=== PATIENT | female | born 1940 | race Hispanic/Latino ===

== ENCOUNTER → 2024-07-09 13:09 | Outpatient (CLI) | payer MEDICARE, MEDICAID, SELFPAY ==
--- NOTE | 2024-07-09 13:40 | EKG_ITS ---
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
[2024-07-09 15:09] LABS: Add Manual Diff / Slide Review NO; Basophils Absolute Auto 0 /uL (0-100); Basophils Percent Auto 0.6 % (0-2); Eosinophils Absolute Auto 100 /uL (0-450); Eosinophils Percent Auto 1.9 % (2-4); Hematocrit 37.2 % (36-46); Hemoglobin 12.4 g/dL (12.0-16.0); Lymphocytes Absolute Auto 1500 /uL (1100-4500); Lymphocytes Percent Auto 22.5 % (25-40); Mean Corpuscular HGB Conc 33.4 % (30-36); Mean Corpuscular Hemoglobin 27.8 PG (26-34); Mean Corpuscular Volume 83.3 fL (80-100); Monocytes Absolute Auto 400 /uL (0-900); Monocytes Percent Auto 6.6 % (3-14); Neutrophils Absolute Auto 4500 /uL (1500-7000); Neutrophils Percent Auto 68.4 % (50-75); Platelet Count 324 X10^3/uL (150-400); Red Blood Cell Count 4.47 X10^6/uL (4.0-5.2); Red Cell Distribution Width 15.4 % (11.6-14.8); White Blood Cell Count 6.6 X10^3/uL (4.5-11.0)
[2024-07-09 15:16] LABS: Hemoglobin A1C% w Est Avg Glu 5.5 % (4.0-6.0)
[2024-07-09 17:00] LABS: Albumin 3.8 g/dL (3.5-5.0); BUN Creatinine Ratio 23.8 (6-22); Blood Urea Nitrogen 19 mg/dL (7-17); Calcium 9.1 mg/dL (8.4-10.2); Carbon Dioxide 26 mmol/L (22-32); Chloride 100 mmol/L (98-107); Estimated Glomerular Filt Rate > 60 mL/min (>60); Glucose 98 mg/dL (80-110); HEMOLYSIS < 15 (0-50); Potassium 3.8 mmol/L (3.4-5.1); Sodium 136 mmol/L (137-145)
[2024-07-09 17:08] LABS: Prealbumin 24.4 mg/dL (17.6-36.0)
== END ==
PROVIDERS: PCP Physician Assistant; Referring Provider Orthopaedic Surgery Adult Reconstructive Orthopaedic Surgery; Visit Provider Orthopaedic Surgery Adult Reconstructive Orthopaedic Surgery
DX: Z01.818 Encounter for other preprocedural examination (principal); R73.9 Hyperglycemia, unspecified; E55.9 Vitamin D deficiency, unspecified; R77.0 Abnormality of albumin; Z01.812 Encounter for preprocedural laboratory examination
CPT/HCPCS: 36415; 80048; 82040; 82306; 83036; 84134; 85025; 93005

== ENCOUNTER 2024-10-05 11:53 | Day surgery (SDC) | payer MEDICARE, MEDICAID, SELFPAY ==
[2024-09-26 08:42] VITALS: BMI 46.5
[2024-10-05] VITALS (11 sets, daily range): BP systolic 109–148; BP diastolic 59–74; PULSE 60–94; RESP 12–22; TEMP 36.1–36.8; O2SAT 90–97; BMI 46.5
--- NOTE | 2024-10-05 06:00 | DI.RAD.S_ITS ---
PROCEDURE: XR KNEE LT 1TO2V INDICATIONS: tka TECHNIQUE: 2 view(s) of the knee acquired. COMPARISON: None. FINDINGS: Bones: Patient is status post knee joint arthroplasty. Hardware components are in expected positions. Visualized bony structures are intact. Soft tissues: Overlying postoperative changes are noted. IMPRESSION: Expected post-operative appearance of a knee arthroplasty. Approved by: Donna Vicente M.D.,Ph.D. on 10/05/2024 at 17:19
[2024-10-05] MEDS: LACTATED RINGERS 1,000 ML 42 ML IV ×2 (12:42→17:35)
--- NOTE | 2024-10-05 13:37 | PM.PREOP ---
Pre-operative Note Interval Note History & Physical reviewed/Exam performed by Physician: Yes Changes to H&P: No
--- NOTE | 2024-10-05 13:59 | SUR.OPER ---
Supine on padded OR bed. Pillow under head, arms secured on padded armboards <90 degree abduction. Safety belt across torso. Non-operative leg secured with tape over blanket over lower leg. Operative leg secured in DeMayo/King/Nathe positioner. Foam padded brace at thigh of operative leg.
[2024-10-05] MEDS: CEFAZOLIN 2 GM/100 ML PREMIX 100 ML IV ×2 (14:18→22:15)
[2024-10-05] MEDS: TRANEXAMIC ACID 1,000 MG VIAL 2000 MG INJ ×2 (14:29→16:06)
[2024-10-05] MEDS: ROPIVACAINE/EPI/CLONIDINE/KET 50 ML SYRINGE INJ (14:56)
--- NOTE | 2024-10-05 16:56 | P.OP_ITS ---
Operative Date/Time/Diagnoses Date of procedure: 10/05/24 Pre-op diagnosis: Left knee osteoarthritis Post-op diagnosis: same Procedure & Clinicians Procedure: Left total knee arthroplasty Same procedure as scheduled: Yes Surgeon: Newton Hunt Career Based Intervention Coordinator: Penelope Villasenor Anesthesia Type: General, Peripheral nerve block and Local Operative Notes Estimated Blood Loss (mL): 150 Procedure in detail: Left Gap-Balanced Keven Persona Medial-Congruent Primary Total Knee Arthroplasty Implants: * Size 7 narrow Cruciate Retaining Femoral Component * Size E Tibial Component with 14 x 30 stem extension * Size 14 [Medial Congruent] Polyethylene Insert * [Unresurfaced] Patella Procedure Summary: This 84-year-old female patient had predominantly medial wear but valgus alignment on her long leg standing radiograph. Given this discrepancy between her deformity and her wear pattern she unsurprising only balanced in extension without the need for any soft tissue releases following mechanical axis cuts. Her bone quality was very poor, as anticipated given her age. She has a high BMI, but only weighs 200 lb as she is rather short at 4 ft 7. She had a very truncal obesity pattern with nearly all of her fat distribution in her abdomen and a relatively normal sized leg. I did utilize an incisional wound VAC given her age, planned postoperative anticoagulation with Eliquis, and BMI. I used a +1 resection on the distal femur and a +4 resection off of the medial proximal tibia but noted that her extension gap open significantly following initial resections and she open to 12 mm with 40 lb of pressure. I therefore anticipated that a larger polyethylene insert would be necessary and ended up using a 14 mm. Procedure in Detail: This patient was seen preoperatively and evaluated for knee pain which was refractory to numerous nonoperative treatment modalities. Their pain correlated with radiographic changes demonstrating significant degeneration in the knee joint. The risks and benefits of continued nonoperative management versus operative management were discussed at length and all of the patient?s questions were answered. Additional educational materials providing further details beyond our discussion in clinic were provided via a publicly available patient education video which included the incidence of medical complications associated with total knee arthroplasty, reasons for revision following total knee arthroplasty, and patient satisfaction rates following total knee arthroplasty. That video can be accessed at [email or web address] . With this understanding of the risks inherent to the procedure, the patient elected to move forward with operative management. Following preoperative optimization, the patient was scheduled for surgery. The patient was met in the preoperative holding area the day of the procedure and all questions were answered. The patie nt?s nares were swabbed with betadine in order to decolonize them from MRSA. Informed consent was signed and the left limb was marked with indelible ink.? The patient was brought back to the operating room where anesthesia was induced. The patient was transferred to the operating table and all bony prominences were padded. The operative site was prepped and draped in the usual sterile fashion. A second prep stick was utilized following drape placement. The incision was marked corresponding to the medial aspect of the tibial tubercle and the patella. Ioban was wrapped circumferentially around the knee. Prior to incision, tranexamic acid and cefazolin were administered. Templating images were displayed. A timeout procedure was performed verifying the patient?s identity, medical comorbidities, allergies, relevant medications, anesthesia type and the surgical plan. All present were in agreement. The assistance of a physician assistant production manager was required for positioning, room setup, soft tissue retraction and wound closure. Without this assistance, the procedure would have been significantly more challenging and time consuming.?? The tourniquet was inflated prior to incision. I made an anterior incision over the knee, dissected through the subcutaneous tissues and identified the lateral border of the VMO. Medial and lateral soft tissue flaps were developed. A medial parapatellar arthrotomy was performed ensuring that adequate capsular tissue would remain for closure at the conclusion of the procedure. The hip was brought into extension and the medial soft tissues were released off the joint line of the tibia. Tissue overlying the distal anterior femur was released to allow for later assessment for anterior notching but left in place. A portion of the retropatellar fat pad was excised while protecting the patellar tendon. The patella was everted. The patella was [not resurfaced]. Osteophytes were excised and a lateral facetectomy was performed. The patella was released from its everted position.?? I flexed the knee to 90 degrees and placed retractors to allow access to the notch. An opening reamer was used to gain access to the femoral canal and an intramedullary ben was introduced into the canal. Diaphyseal fit was obtained in order to allow a distal femoral resection at 5 degrees relative to the anatomic axis, thereby aiming to achieve mechanical alignment of the eventual implant. A +1 resection was planned and assessed using an jennie wing. I then made the cut using a sagittal saw. This provided additional access to the femoral notch. The ACL and PCL were excised. Retractors were placed on the lateral and medial tibia. I hyperflexed the knee while externally rotating it to sublux the tibia anteriorly. I placed a PCL retractor posteriorly and used this to provide additional anterior subluxation. The remainder of the PCL root was released. An intramedullary reamer was used in the ACL footprint to provide access to the tibial canal. An extramedullary guide was positioned to allow a resection perpendicular to the anatomic and mechanical axes of the tibia, thereby aiming to achieve mechanical alignment of the eventual implant. A [+4 resection off the medial tibia] was planned and the tibial cutting jig was pinned in place. I evaluated the cut depth, varus-valgus alignment and slope of the planned tibial resection and deemed them satisfactory. I cut the tibia with a sagittal saw while using retractors to protect the MCL, patellar tendon, and posterolateral structures.? The knee was repositioned in extension and the Fuzion soft tissue balancing gauge was introduced. This demonstrated that [there was equal tension in the medial and lateral compartments of the knee with the knee in full extension and no additional soft tissue releases were necessary.] When 40 pounds of force was applied to the Fuzion device, the extension gap opened to 12 mm. I moved the knee into 90 degrees of flexion, and the Fuzion device was recalibrated by removing a 9 mm lloyd to allow assessment of the flexion gap. The Fuzion was placed perpendicular to the resected surface of the tibia and the resected surface of the distal femur. Forty pounds of traction was applied to match the tension of the extension gap. This externally rotated the femur to 3 degrees. Pins were placed in the 12 mm holes. The measured resection guide was placed over the pins to allow sizing. Appropriate sizing was determined and a 4-in-1 block was placed. This was double checked using the Fuzion device to ensure that it would open to an equal distance as the extension gap when the same amount of force was applied. The Fuzion block was also used to assess flexion gap symmetry. An jennie wing was used to ensure there would be no anterior notching. Retractors were placed to protect the soft tissues during resection. Captured cuts were performed with a sagittal saw for the anterior and posterior femur as well as the corresponding chamfers.? Trial components were placed and the construct was assessed. Range of motion was assessed by ensuring the knee could achieve full extension and assessing maximum passive knee flexion by elevating the femur and allowing the heel to passively fall towards the buttock. Gap symmetry was assessed by stressing the medial and lateral compartments in both extension and flexion. Laxity was assessed in both extension and flexion and the polyethylene trial was adjusted with shims as necessary. Patellar tracking was assessed with knee flexion. Once satisfied with the construct, I moved forward with implant insertion. Lug holes were drilled in the femur and the tibia was prepped ensuring appropriate sizing and rotation relative to the tibial tubercle.?? The bony ends were irrigated and cement was prepared. Portions of the anterior chamfer cut were utilized as cement restrictors in the femur and tibia where intramedullar rods had been utilized. Cement was placed on the entirety of the undersurface of both the tibial and femoral components. Cement was placed onto the dry tibia and pressurized into the cancellous bone. I impacted the tibial component into place. Cement was removed. The tibia was reduced underneath the femur and placed cement onto the dry surface of the resected femur. I placed the femoral component as well as the intended polyethylene trial. Cement was removed from around the femur. I brought the knee into extension and manually pressurized the construct by pushing on the heel while the cement dried. The knee was bathed in a dilute mixture of betadine and peroxide. A mixture of Ropivacaine, Epinephrine, Clonidine and Toradol was infiltrated throughout the soft tissues into structures including the VMO, patellar tendon, quadriceps tendon, MCL and femoral periosteum. A low adductor canal block was also pe rformed using this mixture unless one had been placed preoperatively by anesthesia. The knee was copiously irrigated with pulse lavage. Once cement had been allowed to dry the knee was again trialed. Range of motion was assessed by ensuring the knee could achieve full extension and assessing maximum passive knee flexion by elevating the femur and allowing the heel to passively fall towards the buttock. Gap symmetry was assessed by stressing the medial and lateral compartments in both extension and flexion. Laxity was assessed in both extension and flexion and the polyethylene trial was adjusted with shims as necessary. Patellar tracking was assessed with knee flexion. The tourniquet was let down and the polyethylene trial was removed. I inspected the knee inspected for excess cement and any residual bleeding. Once hemostasis was achieved I inserted the final polyethylene and ensured appropriate engagement of the dovetail locking mechanism.?? The arthrotomy was closed with absorbable interrupted suture ensuring that this extended to the top of the arthrotomy. This was backed up with running barbed suture throughout the arthrotomy. The skin was closed with 2-0 and 3-0 sutures. Surgical glue was applied and a soft dressing was placed.?The sponge, instrument and needle counts were reported as being correct at the end of the case.??No obvious complications occurred. The patient was transferred from the operating table back to a stretcher. The patient emerged from anesthesia without difficulty and was taken to the PACU in a stable condition.? Plan for aftercare: * Weightbearing as tolerated * Mobilization as soon as the patient has recovered from anesthesia. If physical therapists are unavailable at the time the patient is ready to ambulate, then nursing staff should help patient ambulate * Eliquis 2.5 mg twice per day for DVT prophylaxis * Multimodal pain regimen with no IV opioids ordered * Obstructive sleep apnea protocol including respiratory therapy has been ordered based on anesthesia's assessment intraoperatively * Cefadroxil 500 mg twice per day to be taken for 10 days postoperatively for periprosthetic joint infection prophylaxis * Anticipate discharge home tomorrow * Follow up at [facility] in 2 weeks * Detailed postoperative instructions available at [email or web address]
[2024-10-05] MEDS: ALBUTEROL/IPRATROPIUM 3 ML AMPUL INH (17:16)
[2024-10-05] MEDS: OXYCODONE IR 5 MG TABLET PO ×2 (17:19→21:10)
[2024-10-05] MEDS: MORPHINE 10 MG/ML INJ IV ×2 (17:27→17:33)
--- NOTE | 2024-10-05 18:28 | PC.NURSE ---
Patient arrived from PACU at 1850 this evening. She is initially on oxymask but had just received a neb in PACU and was placed on 2 L NC. She reports pain in L knee 6-04/25 but improves after settling in to room. ASHKAN wrap to L Knee C/D/I. Admission, assessment completed, IVF running, call light in reach, incontinent brief placed, bed alarm, q 2 turning, SCD's on, frequent rounding.
[2024-10-05] MEDS: LACTATED RINGERS 1,000 ML 100 ML IV (19:01)
[2024-10-05] MEDS: TRAMADOL 50 MG TABLET PO (19:06)
[2024-10-05] MEDS: DOCUSATE 100 MG CAPSULE PO (20:34)
[2024-10-05] MEDS: MIRTAZAPINE 15 MG TABLET 30 MG PO (20:34)
[2024-10-05] MEDS: cephALEXin 250 MG CAPSULE PO (20:35)
[2024-10-05] MEDS: ASPIRIN EC 81 MG TABLET PO (20:36)
[2024-10-05] MEDS: ALBUTEROL 2.5 MG/3 ML NEB (ADULT) INH (20:36)
[2024-10-05] MEDS: BUDESONIDE 0.5 MG/2 ML NEB INH (20:37)
[2024-10-06 00:48] VITALS: BP 130/60; PULSE 70; RESP 15; TEMP 36.1; O2SAT 93
[2024-10-06] MEDS: OXYCODONE IR 5 MG TABLET PO ×3 (04:08→12:50)
[2024-10-06 04:50] VITALS: BP 136/75; PULSE 67; RESP 16; TEMP 36.3; O2SAT 94
[2024-10-06 05:19] LABS: Hematocrit 35.6 % (36-46); Hemoglobin 11.8 g/dL (12.0-16.0)
[2024-10-06] MEDS: CEFAZOLIN 2 GM/100 ML PREMIX 100 ML IV (06:21)
[2024-10-06] MEDS: LEVOTHYROXINE 75 MCG TABLET PO (06:21)
[2024-10-06] MEDS: ACETAMINOPHEN 325 MG TABLET 650 MG PO (07:50)
[2024-10-06 08:00] VITALS: BP 128/54; PULSE 71; RESP 20; TEMP 36.5; O2SAT 93
[2024-10-06] MEDS: ALBUTEROL 2.5 MG/3 ML NEB (ADULT) INH ×2 (08:30→11:19)
[2024-10-06] MEDS: BUDESONIDE 0.5 MG/2 ML NEB INH (08:30)
[2024-10-06 08:31] VITALS: PULSE 71; RESP 16; O2SAT 95
[2024-10-06] MEDS: cephALEXin 250 MG CAPSULE PO ×2 (08:43→12:50)
[2024-10-06] MEDS: DULOXETINE 30 MG CAPSULE 60 MG PO (08:43)
[2024-10-06] MEDS: ASPIRIN EC 81 MG TABLET PO (08:44)
[2024-10-06] MEDS: PANTOPRAZOLE DR 20 MG TABLET PO (08:44)
[2024-10-06] MEDS: LORATADINE 10 MG TABLET PO (08:45)
[2024-10-06] MEDS: MELOXICAM 7.5 MG TABLET PO (08:46)
[2024-10-06] MEDS: polyethylene glycoL 3350 17 GM POWD.PACK PO (08:47)
[2024-10-06] MEDS: TRAMADOL 50 MG TABLET PO (10:03)
[2024-10-06 11:19] VITALS: PULSE 70; RESP 16; O2SAT 95
--- NOTE | 2024-10-06 11:49 | P.DS_ITS ---
History of Present Illness History of Present Illness Chief complaint: Left TKA *OPB* Narrative: Alis is a pleasant 84 year old female who is POD#1 s/p L TKA by Dr. Hunt. This morning patient reports she is doing well, states her pain is moderate but well controlled at the moment w/ Oxycodone. She reports she has been out of bed once so far and tolerated fairly well w/o too much increase in pain. She would like to possibly d/c to home today. Her daughter will be staying with her for her initial post-op recovery period. She has post-op PT appts scheduled w/ [facility]. She has Meloxicam and Oxycodone Rx at home already for post-op pain control. She does have a history of PE in 2009 and therefore will receive Eliquis 2.5mg BID for post-op DVT prophylaxis for 2 weeks. She has her walker home postop use. She has not been out of bed to urinate yet but reports no issue making urine, she has PureWick in place. Denies fever, chills, chest pain, SOB, nausea, vomiting. Denies any feelings of dizziness or lightheadedness. Operative Date/Time/Diagnoses Date of procedure: 10/05/24 Pre-op diagnosis: Left knee osteoarthritis Post-op diagnosis: same Procedure & Clinicians Procedure: Left total knee arthroplasty Same procedure as scheduled: Yes Surgeon: Newton Hunt Remote Operations Producer: Penelope Villasenor Anesthesia Type: General, Peripheral nerve block and Local Operative Notes Estimated Blood Loss (mL): 150 Procedure in detail: Left Gap-Balanced Keven Persona Medial-Congruent Primary Total Knee Arthroplasty Implants: * Size 7 narrow Cruciate Retaining Femoral Component * Size E Tibial Component with 14 x 30 stem extension * Size 14 [Medial Congruent] Polyethylene Insert * [Unresurfaced] Patella Discharge Providers Provider Discharge Date: 10/06/24 Primary care physician: Cheryl Howell PA-C Consults: 09/26/24 10:38 Consult to Anesthesiology Routine Comment: Consulting Provider: Anesthesiologist Reason for consultation: Surgeon requested re: Cardiac history 10/05/24 06:00 Consult to Anesthesiology Routine Comment: Consulting Provider: Anesthesiologist Reason for consultation: Regional block for post operative pain control 10/05/24 17:39 Consult to Discharge Planning Routine Comment: Consult to Discharge Planning Routine Comment: Consult to Occupational Therapy Evaluate & Treat Comment: Physician Instructions: Evaluate and treat Consult to Occupational Therapy Evaluate & Treat Comment: Physician Instructions: Evaluate and treat Consult to Physical Therapy Evaluate & Treat Comment: Physician Instructions: postop TKA protocol Consult to Physical Therapy Evaluate & Treat Comment: Physician Instructions: postop TKA protocol Discharge provider: Penelope Villasenor PA-C Summary Hospital Course Discharge Diagnosis: Stable status post left total knee arthroplasty Hospital Course: Uncomplicated hospital course. Exam Vital Signs (past 8 hours): - 10/06/24 04:50 10/06/24 08:00 10/06/24 08:31 Temperature 97.3 F L 97.7 F Pulse Rate 67 71 71 Respiratory Rate 16 20 16 Blood Pressure 136/75 128/54 L Pulse Oximetry 94 93 95 Oxygen Delivery Method Room Air Oxygen Flow Rate 0 10/06/24 11:19 Temperature Pulse Rate 70 Respiratory Rate 16 Blood Pressure Pulse Oximetry 95 Oxygen Delivery Method Room Air Oxygen Flow Rate Fraction of Inspired Oxygen 28 SaO2/FiO2 Ratio 346 Oxygen Delivery Method Room Air Oxygen Flow Rate 0 Narrative Exam Narrative: Patient lying comfortably in bed during our interview today. No acute distress. AOx3. Grossly normal alignment of the left lower extremity with moderate swelling throughout the extremity. No ecchymosis. 5/5 strength with DF, PF, EHL bilaterally. Gross sensation intact throughout bilateral lower extremities. Calves soft and non-tender bilaterally. SCDs are on and functioning. Brisk capillary refill, pulses intact. Post-surgical malena and driss dressing clean, dry and intact over the left knee without drainage. Objective Labs 10/06/24 04:40 Labs: Laboratory Results - last 24 hr 10/06/24 04:40 Hgb 11.8 L Hct 35.6 L PFSH Medical History (Updated 09/26/24 @ 10:06 by Tootie Jay RN) Amputation of toe of right foot Hearing loss Osteoarthritis Hypothyroid GERD (gastroesophageal reflux disease) HTN (hypertension) AKHIL (obstructive sleep apnea) Ear pain Fibromyalgia Pulmonary embolism (2009) Surgical History (Updated 09/26/24 @ 10:04 by Tootie Jay RN) History of colonoscopy Hx of toe surgery History of lumbar spinal fusion History of esophagogastroduodenoscopy (EGD) Hx of hernia repair History of carpal tunnel release of both wrists History of hysterectomy Hx of appendectomy Hx of cholecystectomy Hx of bilateral cataract extraction Social History household members: none Smoking Status: Former smoker alcohol intake: former Discharge Assessment & Plan Assessment and Plan Assessment: Stable s/p L TKA Plan of Treatment: 1) Plan to discharge to home today with daughter pending PT evaluation, safe ambulation. 2) Continue multimodal pain management with ice to the knee for additional pain control. 3) Elqiuis 2.5mg BID for DVT prophylaxis X2 weeks. 4) Start outpatient physical therapy to work on range of motion and mobility. 5) Keep dressing intact, clean, dry until 2 week postop appointment. No soaking the incision site in pools or tubs. No topical ointments or creams to the incision site. 6) Follow up at [facility] orth[facility]ics in 2 weeks for a postop appointment and wound check. All patient's questions were answered, they demonstrates understanding and are in agreement with the plan. Call our office if any questions or concerns arise. Discharge Plan Discharge Plan Patient Disposition: Home Discharge orders & Medications Discharge Orders: Discharge (Order); Ordered 10/06/24 Ordered By: Penelope Villasenor Prescriptions: New cefadroxil 500 mg capsule 500 mg PO BID 10 Days Qty: 20 0RF meloxicam 7.5 mg Tablet 7.5 mg PO 1XD Qty: 30 0RF docusate sodium 100 mg Capsule 100 mg PO BID Qty: 30 0RF Eliquis 2.5 mg tablet 2.5 mg PO BID 14 Days Qty: 28 0RF Continued losartan 50 mg Tablet 50 mg PO DAILY fluticasone propion-salmeterol 250-50 mcg/dose Blister With Device 1 inh INHALATION BID amlodipine 5 mg Tablet 5 mg PO DAILY pantoprazole 20 mg Tablet,Delayed Release (Dr/Ec) 20 mg PO DAILY levothyroxine 75 mcg Tablet 75 mcg PO DAILY mirtazapine 30 mg Tablet 30 mg PO BEDTIME azelastine 137 mcg (0.1 %) [place],Non-Aerosol 2 spray INTRANASAL BID Rx Instructions: administer into each nostril albuterol sulfate 90 mcg/actuation Hfa Aerosol Inhaler 2 puff INHALATION Q4-6H PRN (Reason: Shortness Of Breath Or Wheezing) duloxetine 60 mg Capsule,Delayed Release(Dr/Ec) 60 mg PO DAILY levocetirizine 5 mg Tablet 5 mg PO DAILY Changed oxycodone 5 mg tablet 5 mg PO Q4-6H PRN (Reason: Pain (Scale Score 7-10)) Qty: 30 0RF Follow up/Referrals: Cheryl Howell PA-C [Primary Care Provider] - Newton Hunt MD [Physician] - (Follow up at [facility] as scheduled in 2 weeks. ) Diet/Activity/Treatments Diet: Diet as Tolerated Activity: Weightbearing as tolerated, work with outpatient physical therapy to improve range of motion and mobility. Cold/Heat Therapy: Ice to the knee for additional pain control. Skin/Wound/Dressing Care Report to your healthcare provider any signs of infection, such as:: chills, fever, night sweats, unusual drainage and unusual redness Dressing: Keep dressing intact, clean and dry until 2 week post-op appointment. No soaking the incision site in pools or tubs. No topical ointments or creams to the incision site. Visit Report/Discharge Packet Instructions: DI for Knee Replacement, DI for Prescription Opioid Use Stand Alone Forms: Patient Portal/API Discharge Data Primary Care Provider: Cheryl Howell Attending Provider: Newton Hunt Quality VTE Deep Vein Thrombosis/Pulmonary Embolism Present on Admission: No
--- NOTE | 2024-10-06 11:50 | PT.IIE ---
Current Diagnoses Unilateral primary osteoarthritis, left knee (10/05/24) Surgery Performed Operation Date: 10/05/24 13:45 Actual Procedures p Total Knee Arthroplasty(Left) - Newton Hunt MD Surgical History (Last Updated 09/26/24 @ 10:04 by Tootie Jay, RN) History of carpal tunnel release of both wrists History of colonoscopy History of esophagogastroduodenoscopy (EGD) History of hysterectomy History of lumbar spinal fusion Hx of appendectomy Hx of bilateral cataract extraction Hx of cholecystectomy Hx of hernia repair Hx of toe surgery Medical History (Last Updated 09/26/24 @ 10:06 by Tootie Jay RN) Amputation of toe of right foot Ear pain Fibromyalgia GERD (gastroesophageal reflux disease) Hearing loss HTN (hypertension) Hypothyroid AKHIL (obstructive sleep apnea) Osteoarthritis Pulmonary embolism (2009) Physical Therapy Inpatient Evaluation/Re-Eval M1 PT/OT-IP Prior Functional Status Start: 10/06/24 13:19 Freq: NEEDED Status: Active Protocol: Document 10/06/24 11:50 AB (Rec: 10/06/24 13:38 AB [id number]) Medical Review Prior Functional Status Medical History Reviewed Yes Communication able to make needs known Mobility and Gait jpt stated that she was modified independent with all mobilities and ambulation using a 4WW/SPC; tends to furniture cruise at home and uses her electric scooter for outdoor long distance mobility Social History Household Members none Living Arrangements Apartment/Condo Number of Floors (Floors) One Floor Number of Stairs To Enter/Railing? pt stated that she lives in a senior apartment with access to an elevator to get into her floor ramp from the parking to get into the apartment complex Home Environment High Toilet,Walk in Shower, Ramp,Elevator Home Equipment Front Wheel Walker,Four Wheel Walker,Straight Cane,Shower Seat with Backrest,Hand Held Shower,Grab Bars Near Toilet, Grab Bars In Shower Additional Social History Comment pt stated that her daughter will stay with her to assist her during the day as long as needed and her grand daughter will stay with her at night; stated that she has her friend /neighbor Sharif who also will assist her and drive her to go to her outpt PT appointments M2 PT-IP Current Condition Start: 10/06/24 13:19 Freq: NEEDED Status: Active Protocol: Document 10/06/24 11:50 AB (Rec: 10/06/24 13:38 AB [id number]) Physical Therapy Current Condition Current Condition Evaluation Date 10/06/24 Treatment Diagnosis s/p L TKA; difficulty in walking Onset Date 10/05/24 M3 PT-IP Subjective Start: 10/06/24 13:19 Freq: NEEDED Status: Active Protocol: Document 10/06/24 11:50 AB (Rec: 10/06/24 13:38 AB [id number]) Subjective Physical Therapy Visit Type Type Initial Evaluation Visit Start Time 11:50 Visit Stop Time 12:40 Number of GENERAL CAR SUPERVISOR YARD Visits 0 Physical Therapy Visit Comments Patient Comments agreeable to do PT Therapy Pain Assessment Pain When Pain Assessed At Rest Pain Present Pain Present Pain Reported Location Left Knee Intensity 5 Scale Used increases to 9/10 with movement Pain Behaviors Guarding,Wincing Pain Management Techniques Distraction,Elevation, Modification of Treatment,Re- positioning,Timing of Activity with Medications M4 PT-IP Mobility and Gait Start: 10/06/24 13:19 Freq: NEEDED Status: Active Protocol: Document 10/06/24 11:50 AB (Rec: 10/06/24 13:38 AB [id number]) PT-Bed Mobility Assessment Supine to Sit Supine to Sit Standby Assistance PT-Transfer Assessment Sit to and From Stand Sit to and from Stand Contact Guard Assistance, Minimal Assistance,1 Person Assistance,Use of Upper Extremities Equipment Transfer Assistive Device Gait Belt,Front Wheeled Walker Orthotic/Prosthetic Devices or Brace: No Transfers Transfer Destination Chair Transfer Technique ambulated Transfer Ability Level of Assist Minimal Assistance,1 Person Assistance,Use of Upper Extremities Comments Mobility Comments pt supine in bed. obtained PLOF and home set up. daughter arrived. completed heel slides on LLE prior to getting up. post-op folder provided and reviewed contents. BP: 129/54. pt completed supine to sit SBA. able to sit on EOB SBA. completed sit to stand min A and max cues. able to ambulate using FWW min A initially and CGA towards end of ambulation. pt completed ~ 30 ft. pt sat on the chair. caregiver training conducted. educated daughter on how to use safety belt and how to assist pt. daughter was able to put safety belt on pt. assisted pt with sit to stand from chair CGA and ambulated in room ~ 20 ft using fWW CGA to min A. pt sat back on chair . positioned pt on the chair. set up for lunch. call light and table placed next to pt. adjusted pt's FWW. pt and daughter without further concerns. Gait Assessment Gait Gait Assistance Required: Contact Guard Assist,Minimum Assistance Distance (Feet) 30 Able to Maintain Weight Bearing Status Yes During Gait Assistive Devices Assistive Device Gait Belt,Front Wheeled Walker Orthotic/Prosthetic Devices or Brace: No Gait Deviations General Gait Pattern Antalgic,Decreased Stride Length,Decreased Feet Clearance Factors Limiting Gait Function Factors Limiting Gait Function Decreased Activity Tolerance, Decreased Strength,Difficulty Following Directions,Limited Range of Motion,Pain,Poor Balance,Poor Safety Awareness PT-Balance Assessment Sitting Balance and Reactions Static Sitting Balance Ability Normal Dynamic Sitting Balance Ability Good Standing Balance and Reactions Static Standing Balance Ability Fair Dynamic Standing Balance Ability Fair Device Used FWW M5 PT-IP Objective Assessments Start: 10/06/24 13:19 Freq: NEEDED Status: Active Protocol: Document 10/06/24 11:50 AB (Rec: 10/06/24 13:38 AB [id number]) Orientation Orientation/Cognition Level of Alertness Alert Orientation Name,Place,Situation Language Function Ability Hard of Hearing Safety Awareness Understands Safety Issues Memory Description No Deficits Noted Gross Range of Motion Lower Extremity ROM Impairments L knee flexion: ~ 50 deg L knee extension: ~ 25 deg less to 0 Strength Lower Extremity Strength Assessment Bilaterally Impaired Hip 4-/5 Knee 3+/5 Sensation Assessment Sensation Gross Sensation WNL Muscle Tone Muscle Tone WNL Yes M6 PT-IP Treatment Start: 10/06/24 13:19 Freq: NEEDED Status: Active Protocol: Document 10/06/24 11:50 AB (Rec: 10/06/24 13:38 AB [id number]) Physical Therapy Treatment Exercises Exercises Heel Slides Education Education Provided Precautions,Weight Bearing Status,Post-Op Packet,Safety M7 PT-IP Assessment and Plan Start: 10/06/24 13:19 Freq: NEEDED Status: Active Protocol: Document 10/06/24 11:50 AB (Rec: 10/06/24 13:38 AB [id number]) PT Summary Assessment and Plan Potential Rehabilitation Potential Fair Status of Condition at Evaluation Stable Summary Impairments Pain,ROM,Strength,Balance, Coordination,Sensation,Tone, Cognition,Bed Mobility, Transfers,Gait,Activity Tolerance Assessment Summary pt is an 84 y/o F s/p L TKA POD 1. pt is WBAT on LLE. pt requiring CGA to min A with mobility using FWW. pt plans to go home and her daughter will be assisting her. caregiver training conducted and daughter was able to assist pt with mobility. pt may go home when medically stable. Goals Bed Mobility Goal Independent Transfer Goal Independent,Front Wheeled Walker Gait Goal Independent,Front Wheel Walker Gait Distance 200 Days to Meet Goals 5 Frequency of Treatment Frequency Of Treatment Twice a Day Treatment Plan Physical Therapy Treatment Plan Bed Mobility Training,Transfer Training,Gait Training, Therapeutic Exercise,Balance Retraining,Post Op Education, Discharge Planning,Hot or Cold Pack,Neuromuscular Re-ed, Coordination Retraining,Manual Therapy Weight Bearing Status Weight Bearing Status Weight Bear as Tolerated Allowed Weight Bearing Amount (enter % LLE WBAT or #) (%) Recommendations To Nursing Amount of Assist Needed 1 Person Assist Discharge Recommendations PT Discharge Recommendations Home with Assistance, Outpatient PT Transportation Needs at Discharge Private Vehicle
--- NOTE | 2024-10-06 13:14 | CM.DANOTE ---
Initial DCP Assessment Note Pt is a 84 yo female, resident of [place], s/p left TKA PCP: Cheryl Howell Payer: [facility] Reviewed chart, pt discussed in multidisciplinary rounds this morning. Therapy has cleared pt for return home w/family to assist and pt has planned for home, DC order from Ortho has already been initiated this morning. No barriers identified at this time to patient's safe discharge home w/family to assist; close outpatient f/u recommended. CM team will plan to follow clinical course closely in case any DC needs or concerns arise. NATTY Greene Discharge Planning/Care Management CM Discharge Assessment Start: 10/06/24 13:12 Freq: Status: Active Protocol: Document 10/06/24 13:13 RADHA (Rec: 10/06/24 13:14 RADHA [id number]) Discharge Planning Assessment Assigned Hurricane Tracker NATTY Sloan DPOA/Assigned Designee Name Jess Reis, daughter Contact Information P [phone] Advance Directives? Yes Advance Directives on File No History Provided By Patient,Medical Record Prior Living Arrangements Apartment/Condo Household Members none Type of transporation used prior to Drives own vehicle admit Independent with ADL's Yes Is patient alert and oriented? Yes Patient/Family Preference OP PT Therapy Barriers to Discharge No Discharge Plan Home Transportation Arrangement Daughter Referrals Initiated None needed
== END 2024-10-06 13:49 | disposition home or self-care (01) ==
LOC: OR 11:53 → AC 11:54
PROVIDERS: PCP Physician Assistant; Referring Provider Physician Assistant; Visit Provider Orthopaedic Surgery Adult Reconstructive Orthopaedic Surgery
PROC: 0SRD0JZ Replacement of Left Knee Joint with Synthetic Substitute, Open Approach (ICD-10-PCS; CPT 27447; principal; 2024-10-05 13:45)
DX: M17.12 Unilateral primary osteoarthritis, left knee (principal); E66.9 Obesity, unspecified; Z68.39 Body mass index [BMI] 39.0-39.9, adult; M25.762 Osteophyte, left knee
CPT/HCPCS: 27447; 36415; 73560; 85014; 85018; 94640; 97161; 97530; C1776; C1713; J0330; J0690; J1100; J2270; J2405; J2704; J3010; J7613

== ENCOUNTER → 2025-03-01 13:54 | Outpatient (CLI) | payer MEDICARE, MEDICAID, SELFPAY ==
[2024-10-05 18:06] VITALS: BMI 46.5
--- NOTE | 2025-03-01 13:55 | DI.RAD.S_ITS ---
PROCEDURE: XR KNEE 2V WB RIGHT INDICATIONS: Right knee pain TECHNIQUE: 3 views of the knee(s) COMPARISON: [facility] [place], [place], XR KNEE 4+ VIEWS LEFT, 11/27/2024, 15:01. FINDINGS: Bones: Left total knee arthroplasty with unremarkable appearance. There is stable appearance of advanced degenerative disease in the right medial compartment, with chondrocalcinosis laterally. There is probably a small joint effusion. Soft tissues: No knee joint effusions. No suspicious soft tissue calcification. IMPRESSION: Stable appearance of significant degenerative disease in the right medial compartment. Unremarkable left total knee arthroplasty. Dictated by: Kranthi King M.D. on 03/01/2025 at 21:45 Approved by: Kranthi King M.D. on 03/01/2025 at 21:47
[2025-03-01 16:25] LABS: Add Manual Diff / Slide Review NO; Basophils Absolute Auto 100 /uL (0-100); Basophils Percent Auto 0.9 % (0-2); Eosinophils Absolute Auto 200 /uL (0-450); Eosinophils Percent Auto 2.3 % (2-4); Hematocrit 37.6 % (36-46); Hemoglobin 12.5 g/dL (12.0-16.0); Lymphocytes Absolute Auto 2200 /uL (1100-4500); Lymphocytes Percent Auto 27.7 % (25-40); Mean Corpuscular HGB Conc 33.4 % (30-36); Mean Corpuscular Hemoglobin 26.8 PG (26-34); Mean Corpuscular Volume 80.4 fL (80-100); Monocytes Absolute Auto 600 /uL (0-900); Neutrophils Absolute Auto 4800 /uL (1500-7000); Neutrophils Percent Auto 61.1 % (50-75); Platelet Count 381 X10^3/uL (150-400); Red Blood Cell Count 4.68 X10^6/uL (4.0-5.2); White Blood Cell Count 7.8 X10^3/uL (4.5-11.0)
[2025-03-01 16:36] LABS: Hemoglobin A1C% w Est Avg Glu 5.6 % (4.0-6.0)
[2025-03-01 16:47] LABS: Albumin 4.1 g/dL (3.5-5.0); BUN Creatinine Ratio 15.6 (6-22); Blood Urea Nitrogen 12 mg/dL (7-17); Calcium 9.2 mg/dL (8.4-10.2); Carbon Dioxide 30 mmol/L (22-32); Chloride 98 mmol/L (98-107); Estimated Glomerular Filt Rate > 60 mL/min (>60); Glucose 97 mg/dL (70-99); HEMOLYSIS < 15 (0-50); Potassium 3.7 mmol/L (3.4-5.1); Sodium 136 mmol/L (137-145)
[2025-03-01 16:56] LABS: Prealbumin 25.7 mg/dL (17.6-36.0)
[2025-03-01 17:05] LABS: Vitamin D 25 Hydroxy (D3) 56.8 ng/mL (30.0-100.0)
== END ==
PROVIDERS: PCP Physician Assistant; Referring Provider Orthopaedic Surgery Adult Reconstructive Orthopaedic Surgery; Visit Provider Orthopaedic Surgery Adult Reconstructive Orthopaedic Surgery
DX: M17.11 Unilateral primary osteoarthritis, right knee (principal); M25.561 Pain in right knee; Z96.652 Presence of left artificial knee joint; Z78.9 Other specified health status; Z68.37 Body mass index [BMI] 37.0-37.9, adult
CPT/HCPCS: 36415; 73564; 80048; 82040; 82306; 83036; 84134; 85025; 99214

== ENCOUNTER → 2025-03-28 14:58 | Outpatient (CLI) | payer MEDICARE, MEDICAID, SELFPAY ==
[2025-03-21 13:48] VITALS: BMI 46.5
[2025-03-28 16:25] LABS: C-Reactive Protein Quant < 0.5 mg/dL (<1.0)
[2025-03-28 16:45] LABS: Erythrocyte Sedimentation Rate 37 MM/HR (0-20)
== END ==
PROVIDERS: PCP Physician Assistant; Referring Provider Orthopaedic Surgery Adult Reconstructive Orthopaedic Surgery; Visit Provider Orthopaedic Surgery Adult Reconstructive Orthopaedic Surgery
DX: S81.012A Laceration without foreign body, left knee, initial encounter (principal); X58.XXXA Exposure to other specified factors, initial encounter; Z96.652 Presence of left artificial knee joint
CPT/HCPCS: 36415; 85651; 86140

== ENCOUNTER → 2025-04-11 11:38 | Outpatient (CLI) | payer MEDICARE, MEDICAID, SELFPAY ==
[2025-03-21 13:48] VITALS: BMI 46.5
[2025-04-11 12:18] LABS: C-Reactive Protein Quant 1.2 mg/dL (<1.0); Erythrocyte Sedimentation Rate 33 MM/HR (0-20)
== END ==
PROVIDERS: PCP Physician Assistant; Referring Provider Orthopaedic Surgery Adult Reconstructive Orthopaedic Surgery; Visit Provider Orthopaedic Surgery Adult Reconstructive Orthopaedic Surgery
DX: Z96.652 Presence of left artificial knee joint (principal)
CPT/HCPCS: 36415; 85651; 86140

== ENCOUNTER → 2025-04-16 13:40 | Outpatient (CLI) | payer MEDICARE, MEDICAID, SELFPAY ==
[2025-04-15 16:29] VITALS: BMI 46.5
== END ==
PROVIDERS: PCP Physician Assistant; Visit Provider Orthopaedic Surgery Adult Reconstructive Orthopaedic Surgery
DX: S81.012A Laceration without foreign body, left knee, initial encounter (principal); S80.02XA Contusion of left knee, initial encounter; Z96.652 Presence of left artificial knee joint
CPT/HCPCS: 20610; 87070; 87075; 87205; 99213

== ENCOUNTER 2025-07-08 08:34 | Day surgery (SDC) | payer MEDICARE, MEDICAID, SELFPAY ==
[2025-04-15 16:29] VITALS: BMI 46.5
[2025-06-25 12:33] VITALS: BMI 37.0
[2025-07-08] VITALS (16 sets, daily range): BP systolic 111–152; BP diastolic 54–76; PULSE 62–77; RESP 14–24; TEMP 35.7–36.4; O2SAT 75–98; BMI 42.2
--- NOTE | 2025-07-08 08:07 | DI.RAD.S_ITS ---
PROCEDURE: XR KNEE RT 1TO2V INDICATIONS: TKA TECHNIQUE: 4 view(s) of the knee acquired. COMPARISON: [facility], CR, XR KNEE LT 1TO2V, 10/05/2024, 17:02. FINDINGS: Bones: Patient is status post knee joint arthroplasty. Hardware components are in expected positions. Questionable osseous fragment posterior to the femoral component. Soft tissues: Overlying postoperative changes are noted. IMPRESSION: Right knee arthroplasty. Hardware appears intact. Possible osseous fragment posterior to the femoral component, attention on follow-up imaging. Dictated by: Rodrigo Marie M.D. on 07/08/2025 at 13:50 Approved by: Rodrigo Marie M.D. on 07/08/2025 at 13:51
[2025-07-08] MEDS: LACTATED RINGERS 1,000 ML 42 ML IV (09:45)
--- NOTE | 2025-07-08 09:50 | PM.PREOP ---
Pre-operative Note Interval Note History & Physical reviewed/Exam performed by Physician: Yes Changes to H&P: No
[2025-07-08] MEDS: ACETAMINOPHEN IV 1,000 MG/100 ML VIAL 400 MG IV (11:00)
[2025-07-08] MEDS: KETOROLAC 30 MG/ML VIAL INJ (11:41)
[2025-07-08] MEDS: TRANEXAMIC ACID 1,000 MG VIAL 1000 MG INJ ×2 (11:43→12:05)
--- NOTE | 2025-07-08 12:14 | P.OP_ITS ---
Operative Date/Time/Diagnoses Date of procedure: 07/08/25 Time of procedure: 10:45 Pre-op diagnosis: Right knee osteoarthritis Post-op diagnosis: same Procedure & Clinicians Procedure: Right total knee arthroplasty Same procedure(s) as scheduled: Yes Surgeon: Newton Hunt Assisted?: Yes Bead Supervisor: Penelope Villasenor Anesthesia Type: General and Local Operative Notes Findings: Severe arthritis Closure Type: primary Applied: implant(s) Estimated Blood Loss (mL): 50 Tourniquet time (min): 44 Procedure in detail: Right Gap-Balanced Keven Persona Medial-Congruent Primary Total Knee Arthroplasty Implants: * Size 8 Cruciate Retaining Femoral Component * Size E Tibial Component with 14 x 30 stem extension * Size 10 Medial Congruent Polyethylene Insert * Unresurfaced Patella Procedure Summary: This 84-year-old female patient had previously undergone a total knee arthroplasty from mt on her other side. During the procedure I noted that she had fairly lax tissues which resulted in the use of a 14 mm polyethylene insert. Therefore during this procedure today I made more conservative bone cuts anticipating similar soft tissue laxity. The end result was a 10 mm insert, the smallest in the system. This was despite taking only 2 mm off of the medial side of her tibia and a +1 cut on the distal femur. Procedure in Detail: This patient was seen preoperatively and evaluated for knee pain which was refractory to numerous nonoperative treatment modalities. Their pain correlated with radiographic changes demonstrating significant degeneration in the knee joint. The risks and benefits of continued nonoperative management versus operative management were discussed at length and all of the patient?s questions were answered. Additional educational materials providing further details beyond our discussion in clinic were provided via a publicly available patient education video which included the incidence of medical complications associated with total knee arthroplasty, reasons for revision following total knee arthroplasty, and patient satisfaction rates following total knee arthroplasty. With this understanding of the risks inherent to the procedure, the patient elected to move forward with operative management. Following preoperative optimization, the patient was scheduled for surgery. The patient was met in the preoperative holding area the day of the procedure and all questions were answered. The patient?s nares were swabbed in order to decolonize them from MRSA. Informed consent was signed and the right limb was marked with indelible ink.? The patient was brought back to the operating room where anesthesia was induced. The patient was transferred to the operating table and all bony prominences were padded. The operative site was prepped and draped in the usual sterile fashion. A second prep stick was utilized following drape placement. The incision was marked corresponding to the medial aspect of the tibial tubercle and the patella. Ioban was wrapped circumferentially around the knee. Prior to incision, tranexamic acid and cefazolin were administered. Templating images were displayed. A timeout procedure was performed verifying the patient?s identity, medical comorbidities, allergies, relevant medications, anesthesia type and the surgical plan. All present were in agreement. The assistance of a physician pest controller assistant was required for positioning, room setup, soft tissue retraction and wound closure. Without this assistance, the procedure would have been significantly more challenging and time consuming.?? The tourniquet was inflated prior to incision. I made an anterior incision over the knee, dissected through the subcutaneous tissues and identified the lateral border of the VMO. Medial and lateral soft tissue flaps were developed. A mid-v astus arthrotomy was performed ensuring that adequate capsular tissue would remain for closure at the conclusion of the procedure. The knee was brought into extension and the medial soft tissues were released off the joint line of the tibia. Tissue overlying the distal anterior femur was released to allow for later assessment for anterior notching but left in place. A portion of the retropatellar fat pad was excised while protecting the patellar tendon. The patella was everted. The patella was not resurfaced. Osteophytes were excised and a lateral facetectomy was performed. The patella was released from its everted position.?? I flexed the knee to 90 degrees and placed retractors to allow access to the notch. An opening reamer was used to gain access to the femoral canal and an intramedullary ben was introduced into the canal. Diaphyseal fit was obtained in order to plan a distal femoral resection at 5 degrees relative to the anatomic axis. A +1 resection was planned and assessed using an jennie wing. I then made the cut using a sagittal saw. This provided additional access to the femoral notch. The ACL and PCL were excised. Retractors were placed on the lateral and medial tibia. I hyperflexed the knee while externally rotating it to sublux the tibia anteriorly. I placed a Roxana retractor posteriorly and used this to provide additional anterior subluxation. The remainder of the PCL root was released. An extramedullary guide was positioned for a resection perpendicular to the anatomic and mechanical axes of the tibia, thereby aiming to achieve mechanical alignment of the eventual implant. A +2 resection off the medial tibia was planned and the tibial cutting jig was pinned in place. I evaluated the depth, varus-valgus alignment and slope of the planned tibial resection prior to making the cut. I cut the tibia with a sagittal saw while using retractors to protect the MCL, patellar tendon, and posterolateral structures.? The knee was repositioned in extension and the Fuzion soft tissue balancing gauge was introduced. This demonstrated that there was equal tension in the medial and lateral compartments of the knee with the knee in full extension and no additional soft tissue releases were necessary. When 40 pounds of force was applied to the Fuzion device, the extension gap opened to 10 mm. I moved the knee into 90 degrees of flexion, and the Fuzion device was recalibrated by removing a 9 mm lloyd to allow assessment of the flexion gap. The Fuzion block was placed perpendicular to the resected surface of the tibia and the resected surface of the distal femur. Forty pounds of traction was applied to match the tension of the extension gap. This externally rotated the femur to 2 degrees. Pins were placed in the 10 mm holes. Appropriate sizing was determined and a 4-in-1 block was placed. This was double checked using the Fuzion device to ensure that it would open to an equal distance as the extension gap when the same amount of force was applied. The Fuzion block was also used to assess flexion gap symmetry. An jennie wing was used to ensure there would be no anterior notching. Retractors were placed to protect the soft tissues during resection. Captured cuts were performed with a sagittal saw for the anterior and posterior femur as well as the corresponding chamfers.?A laminar enterprise applications manager and retractors were used to expose the posterior knee and the menisci and posterior osteophytes were removed. Trial components were placed and the construct was assessed. Range of motion was assessed by ensuring the knee could achieve full extension and assessing maximum passive knee flexion by elevating the femur and allowing the heel to passively fall towards the buttock. Gap symmetry was assessed by stressing the medial and lateral compartments in both extension and flexion. Laxity was assessed in both extension and flexion and the polyethylene trial was adjusted with shims as necessary. Patellar tracking was assessed with knee flexion. Once satisfied with the construct, I moved forward with implant insertion. Lug holes were drilled in the femur and the tibia was prepped ensuring appropriate sizing and rotation relative to the tibial tubercle.?? The bony ends were irrigated and cement was prepared. Portions of the anterior chamfer cut were utilized as a cement restrictor in the femur. Cement was placed on the entirety of the undersurface of both the tibial and femoral components. Cement was placed onto the dry tibia and pressurized into the cancellous bone. I impacted the tibial component into place. Cement was removed. The tibia was reduced underneath the femur and placed cement onto the dry surface of the resected femur. I placed the femoral component as well as the intended polyethylene trial. Cement was removed from around the femur. I brought the knee into extension and manually pressurized the construct by pushing on the heel while the cement dried. The knee was bathed in a dilute mixture of betadine and peroxide. A mixture of Ropivacaine, Epinephrine and Toradol was infiltrated throughout the soft tissues into structures including the VMO, patellar tendon, quadriceps tendon, MCL and femoral periosteum. The knee was copiously irrigated with pulse lavage. Once cement had been allowed to dry the knee was again trialed. Range of motion was assessed by ensuring the knee could achieve full extension and assessing maximum passive knee flexion by elevating the femur and allowing the heel to passively fall towards the buttock. Gap symmetry was assessed by stressing the medial and lateral compartments in both extension and flexion. Laxity was assessed in both extension and flexion and the polyethylene trial was adjusted with shims as necessary. Patellar tracking was assessed with knee flexion. The tourniquet was let down and the polyethylene trial was removed. I inspected the knee inspected for excess cement and any residual bleeding. Once hemostasis was achieved I inserted the final polyethylene and ensured appropriate engagement of the dovetail locking mechanism.?? The arthrotomy was closed with non-absorbable interrupted suture ensuring that this extended to the top of the arthrotomy. This was backed up with running barbed suture throughout the arthrotomy. The skin was closed with 2-0 and 3-0 sutures. Surgical glue was applied and a soft dressing was placed.?The sponge, instrument and needle counts were reported as being correct at the end of the case. The patient was transferred from the operating table back to a stretcher. The patient emerged from anesthesia without difficulty and was taken to the PACU in a stable condition.? Plan for aftercare: * Weightbearing as tolerated * Eliquis 2.5 mg for DVT prophylaxis given history of a pulmonary embolism * Ama incisional wound VAC is in place and should remain in place until follow up. The battery will after a week at which point it can be removed and uses a normal dressing until clinic visit * Multimodal pain regimen with no IV opioids ordered * Anticipate discharge home tomorrow * Follow up at [facility] in 2 weeks for wound check Complications: none Post-operative Condition: stable Disposition: PACU
--- NOTE | 2025-07-08 12:47 | SUR.OPER ---
AT END OF CASES LARGE BRUISE NOTED DORSAL LEFT HAND FROM D/C IV COBAN DRESSING APPLIED
[2025-07-08] MEDS: ALBUTEROL 2.5 MG/3 ML NEB (ADULT) INH ×2 (12:58→20:07)
[2025-07-08] MEDS: MORPHINE 4 MG/ML INJ IV (13:11)
[2025-07-08] MEDS: LACTATED RINGERS 1,000 ML 100 ML IV (14:00)
[2025-07-08] MEDS: ACETAMINOPHEN 325 MG TABLET 650 MG PO (16:07)
--- NOTE | 2025-07-08 16:08 | P.PN_ITS ---
Subjective Subjective Interval history: I came by to check on Alis harry postoperatively. She has pain that is well- controlled in his resting comfortably in bed. She has intact sciatic nerve function. She has a dressing on that is clean dry and intact. She walked around her hospital room with her physical therapist. We are going to keep her overnight tonight and planned for another session tomorrow morning. She will be sent home with home health given her living situation. Exam Vital Signs (past 8 hours): - 07/08/25 09:17 07/08/25 12:40 07/08/25 12:45 Temperature 97.5 F L 97.2 F L Pulse Rate 62 75 74 Respiratory Rate 16 16 16 Blood Pressure 152/70 H 142/64 H 140/67 Pulse Oximetry 96 95 93 Oxygen Delivery Method Room Air Nasal Cannula Room Air Oxygen Flow Rate 4 07/08/25 12:50 07/08/25 12:51 07/08/25 13:03 Temperature 97.2 F L Pulse Rate 74 74 73 Respiratory Rate 16 14 15 Blood Pressure 140/74 123/74 134/63 Pulse Oximetry 95 75 L 95 Oxygen Delivery Method Room Air Room Air Room Air Oxygen Flow Rate 07/08/25 13:15 07/08/25 13:27 07/08/25 13:42 Temperature 97.2 F L 97.2 F L Pulse Rate 70 73 74 Respiratory Rate 16 16 16 Blood Pressure 124/58 L 111/58 L 142/74 H Pulse Oximetry 95 98 98 Oxygen Delivery Method Room Air Room Air Room Air Oxygen Flow Rate 07/08/25 13:45 07/08/25 14:15 07/08/25 14:45 Temperature 96.6 F L 96.9 F L 97 F L Pulse Rate 69 72 72 Respiratory Rate 24 21 21 Blood Pressure 113/61 122/62 117/61 Pulse Oximetry 98 93 91 Oxygen Delivery Method Oxygen Flow Rate 2 07/08/25 15:49 Temperature 97 F L Pulse Rate 77 Respiratory Rate 21 Blood Pressure 137/76 Pulse Oximetry 92 Oxygen Delivery Method Oxygen Flow Rate Oxygen Delivery Method Room Air Oxygen Flow Rate 2 [facility] Medical History (Updated 06/25/25 @ 13:31 by Tootie Jay RN) History of COVID-19 (02/19/25) COPD (chronic obstructive pulmonary disease) Asthma Primary osteoarthritis of right knee Amputation of toe of right foot Hearing loss Osteoarthritis Hypothyroid GERD (gastroesophageal reflux disease) HTN (hypertension) AKHIL (obstructive sleep apnea) Ear pain Fibromyalgia Pulmonary embolism (2009) Surgical History (Updated 06/25/25 @ 12:55 by Tootie Jay RN) History of surgery Status post total knee replacement, 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
--- NOTE | 2025-07-08 16:20 | PT.IIE ---
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) Medical History (Last Updated 06/25/25 @ 13:31 by Tootie Jay RN) Amputation of toe of right foot Asthma COPD (chronic obstructive pulmonary disease) Ear pain Fibromyalgia GERD (gastroesophageal reflux disease) Hearing loss History of COVID-19 (02/19/25) HTN (hypertension) Hypothyroid AKHIL (obstructive sleep apnea) Osteoarthritis Primary osteoarthritis of right knee Pulmonary embolism (2009) Physical Therapy Inpatient Evaluation/Re-Eval M1 PT/OT-IP Prior Functional Status Start: 07/08/25 15:15 Freq: NEEDED Status: Active Protocol: Document 07/08/25 15:16 [facility] (Rec: 07/08/25 16:20 [facility] [id number]) Medical Review Prior Functional Status Medical History Yes Reviewed Diet/Fluid Regular Consistency Communication WNL Mobility and Gait cane or walker d/t pain Activities of Daily Indep ADLs, CG help for cleaning and some cooking Living and IADL's Social History Household Members none Living Arrangements Apartment/Condo Number of Floors ( Two Floors Floors) Number of Stairs To Stairs, but she has an elevator Enter/Railing? Home Environment High Toilet,Walk in Shower,Built-In Shower Seat Home Equipment Front Wheel Walker,Four Wheel Walker,Straight Cane, Manual Wheelchair,Power Wheelchair/Scooter,Shower Seat with Backrest,Grab Bars Near Toilet,Grab Bars In Shower Additional Social Granddgt is a [employer] and will help around her shifts and History Comment spend the night , CG Mondays and tue -takes out garbage, helps with cleaning, cooking has someone who helps with driving her around M2 PT-IP Current Condition Start: 07/08/25 15:15 Freq: NEEDED Status: Active Protocol: Document 07/08/25 15:16 [facility] (Rec: 07/08/25 16:20 [facility] [id number]) Physical Therapy Current Condition Current Condition Evaluation Date 07/08/25 Treatment Diagnosis R TKA Onset Date 07/08/25 M3 PT-IP Subjective Start: 07/08/25 15:15 Freq: NEEDED Status: Active Protocol: Document 07/08/25 15:16 [facility] (Rec: 07/08/25 16:20 [facility] [id number]) Subjective Physical Therapy Visit Type Type Initial Evaluation Visit Start Time 15:16 Visit Stop Time 16:01 Number of SUEDE CLEANER Visits 0 Therapy Pain Assessment Pain When Pain Assessed During Mobility Pain Present Pain Present Pain Reported M4 PT-IP Mobility and Gait Start: 07/08/25 15:15 Freq: NEEDED Status: Active Protocol: Document 07/08/25 15:16 [facility] (Rec: 07/08/25 16:20 [facility] [id number]) PT-Bed Mobility Assessment Supine to Sit Supine to Sit Standby Assistance PT-Transfer Assessment Sit to and From Stand Sit to and from Minimal Assistance,1 Person Assistance Stand Equipment Transfer Assistive Gait Belt,Front Wheeled Walker Device Transfers Transfer Destination Bedside Commode Transfer Technique Stand Step Pivot Transfer Ability Level of Assist Minimal Assistance Comments Mobility Comments supine to sit SBA then sit to stand min A to then transfer w/FWW Min A to bSC. min A for donning/doffing brief but pt indep w/wiping. Pt then amb in room 30ft FWW CGA then left with call light in reach and nursing in room. Gait Assessment Gait Gait Assistance Contact Guard Assist Required: Distance (Feet) 30 Able to Maintain Yes Weight Bearing Status During Gait Assistive Devices Assistive Device Gait Belt,Front Wheeled Walker Orthotic/Prosthetic No Devices or Brace: Gait Deviations General Gait Pattern Antalgic,Decreased Stride Length,Decreased Feet Clearance Factors Limiting Gait Function Factors Limiting Decreased Activity Tolerance,Decreased Strength,Limited Gait Function Range of Motion,Pain,Poor Balance PT-Balance Assessment Sitting Balance and Reactions Static Sitting Good Balance Ability Dynamic Sitting Good Balance Ability Standing Balance and Reactions Static Standing Fair Balance Ability Dynamic Standing Fair Balance Ability Device Used FWW M5 PT-IP Objective Assessments Start: 07/08/25 15:15 Freq: NEEDED Status: Active Protocol: Document 07/08/25 15:16 [facility] (Rec: 07/08/25 16:20 [facility] [id number]) Orientation Orientation/Cognition Level of Alertness Alert Language Function No Deficits Noted Ability Safety Awareness Understands Safety Issues Memory Description No Deficits Noted Gross Range of Motion Lower Extremity ROM Assessment Right Impaired Strength Lower Extremity Strength Assessment Right Impaired M6 PT-IP Treatment Start: 07/08/25 15:15 Freq: NEEDED Status: Active Protocol: Document 07/08/25 15:16 [facility] (Rec: 07/08/25 16:20 [facility] [id number]) Physical Therapy Treatment Exercises Exercises Ankle Pumps,Quad Sets Education Education Provided Precautions,Weight Bearing Status,Post-Op Packet,Safety M7 PT-IP Assessment and Plan Start: 07/08/25 15:15 Freq: NEEDED Status: Active Protocol: Document 07/08/25 15:16 [facility] (Rec: 07/08/25 16:20 [facility] [id number]) PT Summary Assessment and Plan Potential Rehabilitation Good Potential Status of Condition Evolving at Evaluation Summary Assessment Summary Pt presents day of R TKA with overall good mobility and pain control. She required min A during mobility and did well with small amount of gait in her room. She verbalizes understanding w/packet info. She does live alone and will have help that comes in/out for her but would benefit from HH prior to OP PT. Goals Bed Mobility Goal Independent Transfer Goal Standby Assistance Gait Goal Standby Assistance Gait Distance 150ft Days to Meet Goals 5 Frequency of Treatment Frequency Of Twice a Day Treatment Treatment Plan Physical Therapy Bed Mobility Training,Transfer Training,Gait Training, Treatment Plan Therapeutic Exercise,Balance Retraining,Discharge Planning,Neuromuscular Re-ed,Manual Therapy Other further gait work, review HEP Recommendations and Next Treatment Focus Weight Bearing Status Weight Bearing Weight Bear as Tolerated Status Recommendations To Nursing Amount of Assist 1 Person Assist Needed Discharge Recommendations PT Discharge Home with Assistance,Home Health Recommendations Transportation Needs Private Vehicle at Discharge - PT assist 1
--- NOTE | 2025-07-08 17:26 | PC.NURSE ---
Patient is A&Ox4, VSS afebrile on 2 LNC. She initially reports pain level is tolerable 3/10. She is able to participate with PT and use FWW to get up in the chair. She is incontinent of urine x1 large, and uses the BSC for minimal void. Ama dressing to R knee C/d/i flashing green malena wrap covering c/d/i. After working with PT patient rates pain 5/10 and is medicated with PRN tylenol and oxycodone with good effect. Attempted to wean to RA but 02 sats low 80's. Continuous pulse ox, Call light in reach, bed/chair alarm, Frequent rounding, Continuous monitoring. IVF LR at 100 ml/hr, encourage IS/SCD's. Patient is requesting a purewick at bedtime will communicate to oncoming RN.
[2025-07-08] MEDS: BUDESONIDE 0.5 MG/2 ML NEB INH (20:07)
[2025-07-08] MEDS: MIRTAZAPINE 15 MG TABLET 30 MG PO (21:36)
[2025-07-08] MEDS: APIXABAN 5 MG TABLET 2.5 MG PO (21:36)
[2025-07-08] MEDS: DOCUSATE 100 MG CAPSULE PO (21:36)
[2025-07-09] MEDS: LACTATED RINGERS 1,000 ML 100 ML IV (00:24)
[2025-07-09] MEDS: FAMOTIDINE 20 MG TABLET PO (01:12)
[2025-07-09] MEDS: ACETAMINOPHEN 325 MG TABLET 650 MG PO ×2 (05:14→11:40)
[2025-07-09] MEDS: LEVOTHYROXINE 50 MCG TABLET PO (05:14)
[2025-07-09 07:30] VITALS: PULSE 62; RESP 16; O2SAT 97
[2025-07-09] MEDS: ALBUTEROL 2.5 MG/3 ML NEB (ADULT) INH ×2 (07:30→11:31)
[2025-07-09] MEDS: BUDESONIDE 0.5 MG/2 ML NEB INH (07:30)
--- NOTE | 2025-07-09 07:49 | P.DS_ITS ---
History of Present Illness History of Present Illness Chief complaint: Right TKA Narrative: 84 year old female presented to [facility] on 07/08/25 for planned right total knee arthroplasty by Dr. Hunt. ?This elective procedure was indicated by chronic left knee osteoarthritis limiting her normal activities of enjoyment and living. ?On the date of surgery there were no changes of the medical history, medications or allergies. ?Consent had been obtained and the patient was in agreement to proceed with planned surgery. Discharge Providers Provider Discharge Date: 07/09/25 Primary care physician: Cheryl Howell PA-C Consults: 07/08/25 08:06 Consult to Anesthesiology Routine Comment: Consulting Provider: Anesthesiologist Reason for consultation: Regional block for post operative pain control 07/08/25 14:03 Consult to Discharge Planning Routine Comment: Consult to Occupational Therapy Evaluate & Treat Comment: Physician Instructions: Evaluate and treat Consult to Physical Therapy Evaluate & Treat Comment: Physician Instructions: Evaluate and Treat 07/08/25 15:56 Consult to Pharmacy Routine Comment: high fall risk 07/08/25 16:15 Consult to DIRECTOR OF DISTRIBUTION - Coffee Roaster Helper Routine Comment: Coffee Roaster Helper Consult needed for:: Lives alone Comment: Lives alone - please assist with arranging home health Discharge provider: JOANNA Hone[address] Dr Summary Hospital Course Hospital Course: On 07/08/2025 the patient was brought to the operating room for elective left total knee arthroplasty by Dr Hunt. There were no known immediate complications intraoperatively. After surgery she was transferred to the postoperative recovery care unit and later to the acute Care unit of [facility] for monitoring overnight. On postoperative day 0 she worked with physical therapy and was out of bed however she was unable to ambulate the halls. Her pain was well-controlled with oral analgesics. She reported some reflux symptoms with administration intravenous Ancef which resolved with Pepcid. Her oxygen saturation fluctuated with a low of 92% on room air. As a result she was placed on 2 L of oxygen via nasal cannula overnight. During my evaluation she had no chest pain, dyspnea, nausea or emesis while breathing comfortably on room air. Oxygen saturation 94% during my evaluation. She does have a chronic history of COPD and asthma. During my evaluation she was awaiting physical therapy this morning. She was in agreement with preoperative plan to discharge home today on postoperative day 1. Home health was ordered. Time Spent with Patient Time spent: Less than 30 minutes Exam Vital Signs (past 8 hours): - 07/09/25 07:30 Pulse Rate 62 Respiratory Rate 16 Pulse Oximetry 97 Oxygen Delivery Method Nasal Cannula Oxygen Flow Rate 2 Fraction of Inspired Oxygen 28 SaO2/FiO2 Ratio 332 Oxygen Delivery Method Nasal Cannula Oxygen Flow Rate 2 Narrative Exam Narrative: Well-developed, well-nourished, 84-year-old female, no acute distress. Dressing is dry and intact to right knee with web roll and Haresh wrap surrounding dressing. No hematoma or ecchymosis. Femoral and sciatic nerve function intact. Ankle dorsiflexion, plantar flexion as well as toe flexion-extension intact. Neurovascularly intact to right lower extremity, palpable dorsalis pedis pulse. Sensation grossly intact to right foot. 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) History of colonoscopy Hx of toe surgery History of lumbar spinal fusion History of esophagogastroduodenoscopy (EGD) Hx of hernia repair History of carpal tunnel release of both wrists History of hysterectomy Hx of appendectomy Hx of cholecystectomy Hx of bilateral cataract extraction Social History household members: none Smoking Status: Former smoker alcohol intake: current Discharge Assessment & Plan Assessment and Plan Plan of Treatment: 84 year old female with a past medical history of asthma, COPD, fibromyalgia, GERD and hypertension is post operative day 1 from a right total knee arthroplasty by Dr. Hunt at [facility] on 07/08/2025.. The patient is recovering well with appropriate pain control on oral analgesics and is awaiting evaluation by physical therapy with plan for discharge home today.? She is breathing comfortably on room air this morning, oxygen via nasal cannula to be discontinued when able. No postoperative labs obtained. Nausea reported after Ancef has resolved. She is tolerating oral intake without nausea or emesis. No chest pain or difficulty breathing. Plan:? * Weightbearing as tolerated to right lower extremity with front wheeled walker? * DVT prophylaxis with Eliquis 2.5 mg twice daily, history of DVT. * Continue multimodal analgesia with Tylenol and oxycodone. Avoid NSAIDs with the use of Eliquis * Bowel regimen as needed? * Physical therapy evaluation and treatment today? * Follow up with orthopedics 2 weeks post operatively? * Omeprazole to be used for GERD. Patient would like to avoid use of Protonix. * Post operative medications ordered at pre operative visit. TXA prescribed to her pharmacy today. * Ice to surgical site as needed? * Wean from oxygen as tolerated prior to discharge * Home health ordered yesterday to assist in postoperative recovery Discharge Plan Discharge Plan Patient Disposition: Home Discharge orders & Medications Discharge Orders: Discharge (Order); Ordered 07/09/25 Ordered By: Gyale Jolley Prescriptions: New tranexamic acid 650 mg tablet 1,950 mg PO DAILY 2 Days Qty: 6 0RF Rx Instructions: Take 3 tablets at once in the morning on post operative day 2 and 3 Continued losartan 50 mg Tablet 50 mg PO DAILY fluticasone propion-salmeterol 250-50 mcg/dose Blister With Device 1 inh INHALATION BID amlodipine 5 mg Tablet 5 mg PO DAILY mirtazapine 30 mg Tablet 30 mg PO BEDTIME albuterol sulfate 90 mcg/actuation Hfa Aerosol Inhaler 2 puff INHALATION Q4-6H PRN (Reason: Shortness Of Breath Or Wheezing) duloxetine 60 mg Capsule,Delayed Release(Dr/Ec) 60 mg PO DAILY docusate sodium 100 mg Capsule 100 mg PO BID Qty: 30 0RF levothyroxine 50 mcg tablet 50 mcg PO DAILY oxycodone 5 mg tablet 5 mg PO Q6H PRN (Reason: pain) Qty: 30 0RF Eliquis 2.5 mg tablet 2.5 mg PO BID 45 Days Qty: 90 0RF Patient Comments: only took one dose on 07/04- medication is prescribed for after surgery Follow up/Referrals: Cheryl Howell PA-C [Primary Care Provider, Medical] Newton Hunt MD [Physician, Orthopedic Surgery] Diet/Activity/Treatments Diet: Diet as Tolerated and Low-sodium Cold/Heat Therapy: Ice to knee for additional pain control Skin/Wound/Dressing Care Report to your healthcare provider any signs of infection, such as:: chills, fever, night sweats, unusual drainage and unusual redness Dressing: Keep dressing intact, clean and dry until 2 week post-op appointment. No soaking the incision site in pools or tubs. No topical ointments or creams to the incision site. Visit Report/Discharge Packet Instructions: DI for Knee Replacement, DI for Prescription Opioid Use Stand Alone Forms: Patient Portal/API Print Language: [place] Discharge Data Primary Care Provider: Cheryl Howell Attending Provider: Newton Hunt PROFEE Charge Codes Discharge inpatient/observation: [id number]
[2025-07-09 08:25] VITALS: BP 143/61; PULSE 78
[2025-07-09] MEDS: LOSARTAN 50 MG TABLET PO (08:25)
[2025-07-09] MEDS: APIXABAN 5 MG TABLET 2.5 MG PO (08:25)
--- NOTE | 2025-07-09 09:30 | OT.IP.EVAL ---
Current Diagnoses Unilateral primary osteoarthritis, right knee (07/08/25) Surgery Performed Operation Date: 07/08/25 10:45 Actual Procedures p Total Knee Arthroplasty(Right) - Newton Hunt MD Past Medical History (Last Updated 06/25/25 @ 13:31 by Tootie Jay, RN) Amputation of toe of right foot Asthma COPD (chronic obstructive pulmonary disease) Ear pain Fibromyalgia GERD (gastroesophageal reflux disease) Hearing loss History of COVID-19 (02/19/25) HTN (hypertension) Hypothyroid AKHIL (obstructive sleep apnea) Osteoarthritis Primary osteoarthritis of right knee Pulmonary embolism (2009) Surgical History (Last Updated 06/25/25 @ 12:55 by Tootie Jay, RN) History of carpal tunnel release of both wrists History of colonoscopy History of esophagogastroduodenoscopy (EGD) History of hysterectomy History of lumbar spinal fusion History of surgery Hx of appendectomy Hx of bilateral cataract extraction Hx of cholecystectomy Hx of hernia repair Hx of toe surgery Status post total knee replacement, 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) Occupational Therapy Inpatient Evaluation/Re-Eval M1 PT/OT-IP Prior Functional Status Start: 07/08/25 15:15 Freq: NEEDED Status: Active Protocol: Document 07/08/25 15:16 [facility] (Rec: 07/08/25 16:20 [facility] [id number]) Medical Review Prior Functional Status Medical History Yes Reviewed Diet/Fluid Regular Consistency Communication WNL Mobility and Gait cane or walker d/t pain Activities of Daily Indep ADLs, CG help for cleaning and some cooking Living and IADL's Social History Household Members none Living Arrangements Apartment/Condo Number of Floors ( Two Floors Floors) Number of Stairs To Stairs, but she has an elevator Enter/Railing? Home Environment High Toilet,Walk in Shower,Built-In Shower Seat Home Equipment Front Wheel Walker,Four Wheel Walker,Straight Cane, Manual Wheelchair,Power Wheelchair/Scooter,Shower Seat with Backrest,Grab Bars Near Toilet,Grab Bars In Shower Additional Social Granddgt is a FREEZER PERSON and will help around her shifts and History Comment spend the night , CG Mondays and tue -takes out garbage, helps with cleaning, cooking has someone who helps with driving her around M1 PT/OT-IP Prior Functional Status Start: 07/09/25 09:34 Freq: NEEDED Status: Active Protocol: Document 07/09/25 09:34 [facility] (Rec: 07/09/25 09:41 [facility] Desktop) Medical Review Prior Functional Status Medical History Yes Reviewed Diet/Fluid Regular Consistency Communication WNL Mobility and Gait cane or walker d/t pain Activities of Daily Indep ADLs, CG help for bathing as needed, assist for Living and IADL's cleaning and some cooking Social History Household Members none Living Arrangements Apartment/Condo Home Environment High Toilet,Walk in Shower,Built-In Shower Seat, Elevator Home Equipment Front Wheel Walker,Four Wheel Walker,Straight Cane, Manual Wheelchair,Power Wheelchair/Scooter,Shower Seat with Backrest,Grab Bars Near Toilet,Grab Bars In Shower Additional Social Granddgt is a FREEZER PERSON and will help around her shifts and History Comment spend the night , CG Mondays and tue -takes out garbage, helps with cleaning, cooking has someone who helps with driving her around M2 OT-IP Current Condition Start: 07/09/25 09:34 Freq: Status: Active Protocol: Document 07/09/25 09:34 [facility] (Rec: 07/09/25 09:41 [facility] Desktop) Occupational Therapy Current Condition Current Condition Evaluation Date 07/09/25 Treatment Diagnosis S/P RTKA M3 OT- IP Subjective and Pain Start: 07/09/25 09:34 Freq: Status: Active Protocol: Document 07/09/25 09:34 [facility] (Rec: 07/09/25 09:41 [facility] Desktop) OT- Subjective Occupational Therapy Visit Type Type Initial Evaluation Visit Start Time 09:15 Visit Stop Time 09:30 Occupational Therapy Visit Comments Patient Comments Pt agreed to get dressed. Patient/Caregiver TO go home. Goals OT Pain Assessment Pain When Pain Assessed During Mobility Pain Present Pain Present Pain Reported Location Right Knee Intensity 4 Scale Used Numeric (0 - 10) M4 OT- IP ADL's Start: 07/09/25 09:34 Freq: Status: Active Protocol: Document 07/09/25 09:34 [facility] (Rec: 07/09/25 09:41 [facility] Desktop) OT [id number] General Evaluation Self-Feeding Ability Independent OT ADL-Grooming General Evaluation Grooming Ability Standby Assistance Comments OT Grooming Comments Able to do at the sink with FWW. OT ADL-Oral Care General Eval Oral Care Ability Independent OT ADL-Dressing General Eval Upper Body Dressing Independent Ability Lower Body Dressing Minimal Assistance Ability Areas Needing Socks Assistance OT ADL-Toileting Comments OT Toileting Pt not having to go. Pt wears Depends and able to call Comments for help at home. OT ADL-Bathing Comments OT Bathing Comments Pt to have assist. M5 OT- IP IADL's Start: 07/09/25 09:34 Freq: Status: Active Protocol: Document 07/09/25 09:34 [facility] (Rec: 07/09/25 09:41 [facility] Desktop) OT-Instrumental Activities of Daily Living Home Safety Awareness Awareness of Need Good Awareness for Assistance at Home Ability to Problem Able to Problem Solve Solve Emergency Situations Meal Preparation Meal Preparation Caregiver Provides Assist Recording Artist Recording Artist Caregiver Provides Assist M6 OT- IP Functional Cognition Start: 07/09/25 09:34 Freq: Status: Active Protocol: Document 07/09/25 09:34 [facility] (Rec: 07/09/25 09:41 [facility] Desktop) Cognitive Factors Limiting Selfcare Function Cognitive Ability Level of Alertness Alert Patient Orientation Name,Age,Birthday,Month,Date,Year,Day of Week,Place, Situation Attention Span Capable of Focused Attention,Capable of Sustained Ability Attention Ability to Follow Able to Follow Multi-Step Commands Commands Cognitive Comments Cognitive Assessment Intact Comments OT- Vision and Hearing OT- Hearing Assessment OT- Hearing Use of Hearing Aids Assessment OT- Vision Assessment Visual Acuity Glasses For Reading Visual Attentiveness WFL Occular Pursuits WFL M7 OT- IP Mobility and Balance Start: 07/09/25 09:34 Freq: Status: Active Protocol: Document 07/09/25 09:34 [facility] (Rec: 07/09/25 09:41 [facility] Desktop) OT-Transfer Assessment Sit to and From Stand Sit to and from Standby Assistance Stand Transfers Transfer Ability Standby Assistance Technique Transfer Destination Chair Comments Mobility Comments Pt able to come to stand and walk to and form the sink with FWW SBA. OT- Balance Assessment Sitting Balance and Reactions Static Sitting Normal Balance Ability Dynamic Sitting Good Balance Ability Standing Balance and Reactions Static Standing Good Balance Ability Dynamic Standing Fair Balance Ability M8 OT- IP Objective Assessments Start: 07/09/25 09:34 Freq: Status: Active Protocol: Document 07/09/25 09:34 [facility] (Rec: 07/09/25 09:41 [facility] Desktop) OT Gross Range of Motion Upper Extremity Range of Motion Assessment Within Functional Limits OT Strength Upper Extremity Strength Assessment Within Functional Limits M9 OT- IP Assessment and Plan Start: 07/09/25 09:34 Freq: Status: Active Protocol: Document 07/09/25 09:34 [facility] (Rec: 07/09/25 09:41 [facility] Desktop) OT Summary Assessment and Plan Potential Rehabilitation Excellent Potential Analytic Complexity Low at Evaluation Summary OT Impairments Pain,Functional Mobility,Dressing,Bathing,Shower Transfers Progress Towards Progressing Toward Goals Goals Assessment Summary Pt low complexity and main barriers are pain, and will need assist for dressing, toileting, showering and IADL needs. Pt has someone at home to be able to assist her for needs. Pt to go home with 24/7 assist and outpt PT. Goals Self-Feeding Goal Independent Grooming Goal Independent Dressing Goal Minimal Assistance Toileting Goal Standby Assistance Bathing Goal Minimal Assistance Toilet Transfer Goal Independent Shower Transfer Goal Standby Assistance Days to Meet Goals 3 Frequency of Treatment Frequency Of Once a Day Treatment Treatment Plan OT Treatment Plan ADL Training,Functional Mobility,Patient/Family Education,Discharge Planning Discharge Recommendations OT Discharge Home with 24/7 Assist Available,Outpatient PT Recommendations Transportation Needs Private Vehicle at Discharge
--- NOTE | 2025-07-09 10:15 | PT.IPTN ---
Current Diagnoses Unilateral primary osteoarthritis, right knee (07/08/25) Surgery Performed Operation Date: 07/08/25 10:45 Actual Procedures p Total Knee Arthroplasty(Right) - Newton Hunt MD Physical Therapy Treatment Note M2 PT-IP Current Condition Start: 07/08/25 15:15 Freq: NEEDED Status: Discharge Protocol: Document 07/08/25 15:16 [facility] (Rec: 07/08/25 16:20 [facility] [id number]) Physical Therapy Current Condition Current Condition Evaluation Date 07/08/25 Treatment Diagnosis R TKA Onset Date 07/08/25 M3 PT-IP Subjective Start: 07/08/25 15:15 Freq: NEEDED Status: Discharge Protocol: Document 07/09/25 10:15 [facility] (Rec: 07/09/25 13:24 [facility] [id number]) Subjective Physical Therapy Visit Type Type Treatment Note Visit Start Time 10:15 Visit Stop Time 10:35 Number of PLASTIC SURGERY TECHNICIAN Visits 0 Physical Therapy Visit Comments Patient Comments agreeable to do PT Therapy Pain Assessment Location Right Knee Intensity 4 Scale Used increases ih mobility Pain Behaviors Guarding Pain Management Apply Cold,Distraction,Modification of Treatment,Re- Techniques positioning,Timing of Activity with Medications M4 PT-IP Mobility and Gait Start: 07/08/25 15:15 Freq: NEEDED Status: Discharge Protocol: Document 07/09/25 10:15 [facility] (Rec: 07/09/25 13:24 [facility] [id number]) PT-Bed Mobility Assessment Supine to Sit Supine to Sit Standby Assistance Sit to Supine Sit to Supine Standby Assistance PT-Transfer Assessment Sit to and From Stand Sit to and from Contact Guard Assistance Stand Equipment Transfer Assistive Gait Belt,Front Wheeled Walker Device Orthotic/Prosthetic No Devices or Brace: Transfers Transfer Destination Bed,Chair Transfer Technique ambulated Transfer Ability Level of Assist Standby Assistance,1 Person Assistance,Use of Upper Extremities Comments Mobility Comments pt sitting on the chair and agreeable to do PT. sit to stand from chair CGA and ambulated to EOB SBA. pt completed supine<>sit SBA. pt throws her upper body down to get momentum to lift LE up to bed. pt also stated that she steps up on a step stool to be able to get into the bed. pt agreed to do transfers and bed mobility again. sit to stand from EOB CGA and ambulated ~ 20 ft using fWW SBA and completed stepping up on step stool CGA using fWW. pt sat on EOB. educated on bed mobility techniques for safer mobility and less back strain. pt completed sit<>supine SBA. pt ambulated back to chair using fWW SBA. positioned pt on the chair. ice pack provided. call light and table placed within reach. pt without further concerns. stated that her grand daughter will be home to assist her. Gait Assessment Gait Gait Assistance Standby Assistance Required: Distance (Feet) 25 Able to Maintain Yes Weight Bearing Status During Gait Assistive Devices Assistive Device Gait Belt,Front Wheeled Walker Orthotic/Prosthetic No Devices or Brace: Gait Deviations General Gait Pattern Antalgic,Decreased Stride Length,Decreased Feet Clearance,Step-to Gait Factors Limiting Gait Function Factors Limiting Decreased Activity Tolerance,Decreased Strength,Limited Gait Function Range of Motion,Pain,Poor Balance,Poor Safety Awareness Stair Climbing Assessment Comments Stair Climbing able to step up on step stool using FWW CGA Comments M5 PT-IP Objective Assessments Start: 07/08/25 15:15 Freq: NEEDED Status: Discharge Protocol: Document 07/08/25 15:16 [facility] (Rec: 07/08/25 16:20 [facility] [id number]) Orientation Orientation/Cognition Level of Alertness Alert Language Function No Deficits Noted Ability Safety Awareness Understands Safety Issues Memory Description No Deficits Noted Gross Range of Motion Lower Extremity ROM Assessment Right Impaired Strength Lower Extremity Strength Assessment Right Impaired M6 PT-IP Treatment Start: 07/08/25 15:15 Freq: NEEDED Status: Discharge Protocol: Document 07/09/25 10:15 [facility] (Rec: 07/09/25 13:24 [id number]) Physical Therapy Treatment Education Education Provided Safety M7 PT-IP Assessment and Plan Start: 07/08/25 15:15 Freq: NEEDED Status: Discharge Protocol: Document 07/09/25 10:15 [facility] (Rec: 07/09/25 13:24 [facility] [id number]) PT Summary Assessment and Plan Potential Rehabilitation Good Potential Summary Impairments Pain,ROM,Strength,Balance,Coordination,Sensation,Tone, Cognition,Bed Mobility,Transfers,Gait,Activity Tolerance Progress Towards Slow Progress due to Pain,Slow Progress due to Activity Goals Tolerance Assessment Summary pt requiring SBA to CGA with mobility using FWW. pt plans to go home and will have her grand daughter to assist her. Goals Bed Mobility Goal Independent Transfer Goal Standby Assistance,Front Wheeled Walker Gait Goal Standby Assistance,Front Wheel Walker Gait Distance 150ft Other Goals up/down step stool to get into the bed using fWW mod I Days to Meet Goals 5 Frequency of Treatment Frequency Of Twice a Day Treatment Treatment Plan Physical Therapy Bed Mobility Training,Transfer Training,Gait Training, Treatment Plan Therapeutic Exercise,Balance Retraining,Discharge Planning,Neuromuscular Re-ed,Manual Therapy Weight Bearing Status Weight Bearing Weight Bear as Tolerated Status Allowed Weight RLE WBAT Bearing Amount ( enter % or #) (%) Recommendations To Nursing Amount of Assist 1 Person Assist Needed Discharge Recommendations PT Discharge Home with Assistance,Home Health Recommendations Transportation Needs Private Vehicle at Discharge - PT assist 1
[2025-07-09] MEDS: TRANEXAMIC ACID 2,000 MG in SODIUM CHLORIDE 0.9% 100 ML 200 MG IV (11:34)
--- NOTE | 2025-07-09 13:41 | CM.DANOTE ---
DCP Assessment note pt is a 84yo F POD1 right TKA with Dr. Hunt. TRANSMISSION ASSEMBLER reviewed EMR. per chart, pt lives alone in [place], plans for a granddaughter to come stay with her post op. per Marilee note, wants HH set up for pt. Per OT/PT, pt mobilizing well enough not to even qualify for HH. rec OP PT/OT. TRANSMISSION ASSEMBLER met with pt in room. pt confirms living alone and has plans for granddaughter to provide care. has a PP CG 3 days/week for housework/cooking/additional needs. has a friend Jessica that helps the other two days. TRANSMISSION ASSEMBLER reviewed HH options- pt declines it at this time saying she would prefer her previous OP PT. Received call from dtr Jess. questions about HH. TRANSMISSION ASSEMBLER reported that pt declined it. dtr understands. TRANSMISSION ASSEMBLER met with pt again- asked about HH again. Pt continues to refuse HH at this time. eager to dc home. jessica here to transport. P: pt to dc home today with OP f/u. Jessica/granddaughter/PP CG to assist. no further CM needs at this time. will continue to follow in case any should arise NATTY Huff Discharge Planning/Care Management Advanced directive, confirm from FAMILY Start: 07/08/25 16:04 Freq: Q24H Status: Discharge Protocol: Document 07/08/25 16:04 EJ (Rec: 07/08/25 18:37 EJ [id number]) Advance Directive, confirm on record Time 16:00 Person contacted Alis Liz Copy received No CM Discharge Assessment Start: 07/08/25 08:47 Freq: Status: Discharge Protocol: Document 07/09/25 13:39 [facility] (Rec: 07/09/25 13:41 [facility] [id number]) Discharge Planning Assessment Assigned Discharge NATTY Alexandre Speedometer Inspector Provider Cheryl Button Insurance Medicaid,[facility] DPOA/Elsa Mercado dtr Designee Name Contact Information [phone] Advance Directives? Yes: POLST Advance Directives No on File History Provided By Patient,Medical Record Prior Living Apartment/Condo Arrangements Household Members none Type of Relies on Others transporation used prior to admit Independent with ADL Yes 's Is patient alert and Yes oriented? Needs Assistance Home Chores / Shopping With Comment has PP CG 3 days/week and a friend Jessica that helps her the other two days DME Already Rented / Wheelchair,FWW / Walker,Cane Owned Patient/Family OP PT Therapy Preference Discharge Plan Home Transportation Jessica Arrangement Referrals Initiated None needed Whiteboard Updated Yes in Patient Room with name and ext. # of Thrill Performer Review Status In Process Please Provide Date 07/09/25 Initial DC Assessment Was Performed Next Review Type Continued Stay Review Pre-Anesthesia Assessment Start: 06/25/25 12:33 Freq: Status: Complete Protocol: Document 06/25/25 12:33 [facility] (Rec: 06/25/25 13:29 [facility] [id number]) Pre-Anesthesia Assessment PAC Comment Phone assess 06/25/25 Patient Information Phone Assessment Reviewed Via Assessment Completed Patient With Comment Outside EKG 04/09/25 scanned Primary Care Cheryl C Button Provider Comment Clearance form scanned and in surgery folder Medical Clearance Yes Received Seen Specialist in Yes Last 12 Months Specialist Seen Stripper Opaquer,ENT,Orthopedist Comment ENT visit 05/21/25 scanned and in surgery folder Primary Language Bhutanese Preferred Language Bhutanese Head Loader Required No Height 152.4 cm Weight 86.183 kg Body Mass Index (BMI 37.0 ) Hearing Ability Hearing Impaired,Use of Hearing Aid Visual Assist Glasses,Magnifying Glass Dentition Type Full- Upper & Lower Barriers to Learning Auditory,Visual Hx Anesthesia No: AKHIL-does not tolerate CPAP Reactions Hx Family Anesthesia No Reaction Hx Malignant No Hyperthermia Hx Blood No Transfusions Anesthesia Review No Requested Collections Curator No alcohol intake current Alcohol intake holidays/special occasions only frequency Smoking Status Former smoker how long ago did 1978 patient quit smoking Substance Use Type [ does not use #R] Pain Present Pain Reported Musculoskeletal Abnormal Gait,Difficulty Walking,Joint Pain Symptoms History of Falling ( Yes Recent or History of ) Patient is No completely paralyzed or completely immobile Prosthesis or Cane,Front Wheel Walker Orthotic Device Mental Status Oriented to own ability Is patient on oxygen No ? Does patient have Yes: Occasional PATIÑO/SOB Hx Sleep Apnea Yes CPAP/BIPAP use prescribed not used Currently Taking a No Beta Neeru Hx Chest Pain No Hx SOB Yes Hx Syncope or No Dizziness Anti-Coagulant No Therapy Has a Stripper [facility] Yes: Visit 04/09/[address] Rico @ [facility] Cardiac Testing No Hx Pacemaker/ICD No Pacemaker Rep No Required? Cardiac Clearance Yes Received Comment Cardiac records scanned and in surgery folder Dysphagia No Gastrointestinal Reflux Symptoms Bladder Pattern Incontinent Urinary Catheter No Present Hx Urinary Self No Catheterization Diabetes No HgbA1C 5.6 Date 03/01/25 Patient No Lactating No Presence of external Yes: Lumbar, bilat eye IOL, left knee or internal medical devices? Month and year 2023 received flu vaccine Received a COVID No vaccine? Marital Status Single Lives With none Current Living Apartment/Condo Arrangements Number of Stairs To Stairs, but she has an elevator Enter/Railing? Support System Caregiver Comment Caregiver 3x/week, granddaughter will spend the night Does the Patient Yes Have Assistance After Surgery Patient Discharge Return Home Plan Description Comment Pt not advised on length of stay per surgeon Feels Safe in Yes Current Environment Been Physically Hurt No or Threatened By a Person in Current Environment Do you have thoughts None of harming yourself or others? Are you currently No considering suicide? Do you have a plan No Plan to hurt yourself or others? Do You Have Any No Spiritual Beliefs That May Affect Your HC Choices? Do You Have Any No Cultural Practices That May Affect Your HC Choices? Comment Gnosticist Who Can We Speak to Family, friends About Patient's Care Identifying Code for Declines to issue Release of Patient Information Health Care Proxy/ Jess (daughter) Next of Kin Health Care Proxy [phone] Phone Number Emergency Contact Jessica Plascencia (caregiver) Name Emergency Contact [phone] Phone Number Advance Directives? Yes: POLST Advance Directives No on File Requested Patient Yes Bring Advanced Directives DOS Power of Addiction Psychiatrist No PAC Instructions Assistance for 24 hours post-op,Do not shave/clip surgical site,Durable medical equipment,Medications to take/avoid,No ETOH/petroleum product on skin DOS,NPO, Post-op transportation,Pre-surgical wash,Sturdy shoes/ comfortable clothes,Do not bring valuables and remove jewelry
== END 2025-07-09 12:29 | disposition home or self-care (01) ==
LOC: OR 08:38 → AC 08:43
PROVIDERS: PCP Physician Assistant; Referring Provider Orthopaedic Surgery Adult Reconstructive Orthopaedic Surgery; Visit Provider Orthopaedic Surgery Adult Reconstructive Orthopaedic Surgery
PROC: 0SRC0JZ Replacement of Right Knee Joint with Synthetic Substitute, Open Approach (ICD-10-PCS; CPT 27447; principal; 2025-07-08 10:45)
DX: M17.11 Unilateral primary osteoarthritis, right knee (principal); Z86.711 Personal history of pulmonary embolism; M25.761 Osteophyte, right knee
CPT/HCPCS: 27447; 73560; 94640; 94760; 97116; 97162; 97165; 97530; C1776; A9270; C1713; J0131; J0689; J1100; J1885; J2272; J2405; J2704; J3010; J7613